=== PATIENT | male | born 1955 | race Caucasian/White ===

== ENCOUNTER 2018-08-31 10:40 | Day surgery (SDC) | payer MEDICARE, MEDICAID ==
[2018-08-31] MEDS: Lactated Ringers 1,000 ML IV SCH (11:14)
[2018-08-31] MEDS: Sodium Chloride 0.9% 10 ML Syringe FLUSH PRN (11:14)
[2018-08-31] MEDS ORDERED: fentaNYL 100 MCG/2 ML SDV ONE (11:38)
[2018-08-31] MEDS ORDERED: Midazolam 1 MG/ML 2 ML SDV ONE (11:38)
[2018-08-31] MEDS ORDERED: Propofol 200 MG/20 ML SDV ONE (11:38)
[2018-08-31] MEDS ORDERED: Lidocaine 2% 5 ML SDV ONE (11:38)
--- NOTE | 2018-08-31 13:34 | PCM.PN ---
- General Info Date of Service: 08/31/18 - Review of Systems Systems Review Comment:: 62-year-old male referred for EGD. He has a sensation of phlegm in his throat. He also has noticed intermittent hoarseness of his voice. He had an ENT evaluation and upper endoscopy was recommended. He is medically stable to proceed with upper endoscopy. I reviewed his recent history and physical and there is no significant change noted. I have discussed discussed the proposed procedure with the patient. He agrees to proceed accepting risks. - Patient Data Vitals - Most Recent: Last Vital Signs Temp 97 F 08/31/18 11:05 Pulse 76 08/31/18 11:05 Resp 16 08/31/18 11:05 BP 164/97 H 08/31/18 11:05 Pulse Ox 96 08/31/18 11:05 Weight - Most Recent: 104.78 kg Med Orders - Current: Current Medications Lactated Ringer's (Ringers, Lactated) 1,000 mls @ 50 mls/hr IV ASDIRECTED MONICO Last Admin: 08/31/18 11:14 Dose: 50 mls/hr Sodium Chloride (Saline Flush) 10 ml FLUSH Q8HR PRN PRN Reason: keep vein open Last Admin: 08/31/18 11:14 Dose: 10 ml Discontinued Medications Fentanyl (Sublimaze) Confirm Administered Dose 100 mcg .ROUTE .STK-MED ONE Stop: 08/31/18 11:39 Lidocaine (Xylocaine-Mpf 2%) Confirm Administered Dose 5 ml .ROUTE .STK-MED ONE Stop: 08/31/18 11:39 Midazolam HCl (Versed 1 Mg/Ml) Confirm Administered Dose 2 mg .ROUTE .STK-MED ONE Stop: 08/31/18 11:39 Propofol (Diprivan 20 Ml) Confirm Administered Dose 200 mg .ROUTE .STK-MED ONE Stop: 08/31/18 11:39 - Problem List Review Problem List Initiated/Reviewed/Updated: Yes - My Orders Last 24 Hours: My Active Orders 08/31/18 10:45 Vital Signs [RC] PER UNIT ROUTINE Lactated Ringers [Ringers, Lactated] 1,000 ml IV ASDIRECTED Sodium Chloride 0.9% [Saline Flush] 10 ml FLUSH Q8HR PRN Peripheral IV Insertion Adult [OM.PC] Routine 08/31/18 11:00 Patient to Empty Bladder [RC] ASDIRECTED 08/31/18 11:45 Verify Patient Consent Obtain [RC] ASDIRECTED 08/31/18 Breakfast Nothing Per Oral Diet [DIET] - Assessment Assessment:: Dysphasia - Plan Plan:: EGD
[2018-08-31] MEDS ORDERED: Propofol 200 MG/20 ML SDV IV ONE (13:35)
[2018-08-31] MEDS ORDERED: Midazolam 1 MG/ML 2 ML SDV IV ONE (13:35)
[2018-08-31] MEDS ORDERED: fentaNYL 100 MCG/2 ML SDV IV ONE (13:35)
--- NOTE | 2018-08-31 14:12 | PCM.OPNOTE ---
- General Post-Op/Procedure Note Date of Surgery/Procedure: 08/31/18 Operative Procedure(s): EGD with Biopsy Findings: Distal Esophageal changes suggestive of 4cm segment of Johnson's Esophagus Exam otherwise normal Pre Op Diagnosis: Dysphagia Post-Op Diagnosis: Johnson's Esophagus Anesthesia Technique: MAC Primary Surgeon: Andres Miner Pathology: Biopsies of Distal Esophagus Output, Urine Amount: 0 EBL in mLs: 5 Complications: None Condition: Good
[2018-08-31 17:22] VITALS: BP 152/78
--- NOTE | 2018-08-31 19:21 | OR ---
DATE OF SURGERY: 08/31/2018 SURGEON: Andres Miner MD REFERRING PHYSICIAN: Ariana Rodriguez MD PREOPERATIVE DIAGNOSIS: Abnormal sensation in throat. POSTOPERATIVE DIAGNOSIS: Johnson's esophagus. OPERATION PERFORMED: Esophagogastroduodenoscopy with biopsy. INDICATIONS FOR SURGERY: This 62-year-old male has had a recent problem with feeling of fullness in his throat and increased phlegm in this area. He underwent an ENT evaluation and upper endoscopy was recommended. FINDINGS: The patient's oropharynx and upper esophagus appeared normal. He does have changes consistent with Johnson's esophagus in the distal esophagus. These extend approximately 4 cm up from the GE junction which is located 39 cm from the incisors. The gastric mucosa and duodenal mucosa appeared normal. No ulcerations or signs of obstruction are seen. DESCRIPTION OF PROCEDURE: The patient was taken to the operating room, the patient was given intravenous sedation, he was placed in the left lateral decubitus position. The esophagus was intubated with the Olympus gastroscope. This was carefully advanced into the oropharynx and then slowly down through the esophagus. The scope was then advanced through the stomach and into the duodenum where examination to the 3rd portion was performed. After examining the duodenum, the scope was withdrawn back into the stomach where full examination including retroflexed examination of the fundus was carried out. The GE junction and distal esophagus were carefully examined and with findings consistent with Johnson's esophagus, multiple biopsies were taken of this area at different levels. The remainder of the esophagus was then re-examined as the scope was removed. The patient was then taken from the operating room in satisfactory condition. ESTIMATED BLOOD LOSS: 5 mL. COMPLICATIONS: None. PROGNOSIS: Good. /[id number]/MODL
== END 2018-08-31 15:50 | disposition home or self-care (01) ==
LOC: KA.SDS 10:40
PROVIDERS: ATTEND Surgery
DX: K22.70 Barrett's esophagus without dysplasia (principal); K20.9 Esophagitis, unspecified; J44.0 Chronic obstructive pulmonary disease with (acute) lower respiratory infection; J20.9 Acute bronchitis, unspecified; F17.210 Nicotine dependence, cigarettes, uncomplicated; F17.220 Nicotine dependence, chewing tobacco, uncomplicated; K21.9 Gastro-esophageal reflux disease without esophagitis; Z79.899 Other long term (current) drug therapy; Z88.0 Allergy status to penicillin; Z88.1 Allergy status to other antibiotic agents
CPT/HCPCS: 00731; J2250; J2704; J3010; J7120

== ENCOUNTER 2018-10-25 08:36 | Emergency (ER) | payer MEDICARE, MEDICAID ==
[2018-10-25 08:50] VITALS: BP 155/105
--- NOTE | 2018-10-25 09:22 | EDM.PDOC ---
ED HPI GENERAL MEDICAL PROBLEM - General Chief Complaint: Skin Complaint Stated Complaint: Rash Time Seen by Provider: 10/25/18 09:13 Source of Information: Reports: Patient History Limitations: Reports: No Limitations - History of Present Illness INITIAL COMMENTS - FREE TEXT/NARRATIVE: 63 YO WM presents to ER with painful rash to right side of scalp, right ear and tongue which began 3 days ago. Pt reports symptoms began soon after he started septra for an ingrown toenail infection. Pt denies any difficulty breathing or swallowing, no eye pain or visual changes. Pt denies any fever/chills, no nausea /vomiting or headache. Onset Date: 10/22/18 Duration: Day(s): (3) Location: Reports: Head Quality: Reports: Ache Severity: Moderate Improves with: Reports: None Worsens with: Reports: None Associated Symptoms: Reports: No Other Symptoms Treatments CITY DRIVER: Reports: Other Medication(s) Other Treatments CITY DRIVER: Pain pills Right Head Pain Score (Numeric/FACES): 10 - Related Data Allergies Allergy/AdvReac Type Severity Reaction Status Date / Time doxycycline Allergy Unknown UNKNOWN Verified 10/25/18 08:50 Penicillins Allergy Unknown UNKNOWN Verified 10/25/18 08:50 Home Meds: Home Meds Acetaminophen [Tylenol Arthritis Pain] 1,300 mg PO DAILY PRN 02/06/15 [History] Esomeprazole Magnesium 40 mg PO DAILY PRN 02/06/15 [History] Meloxicam 15 mg PO DAILY PRN 02/06/15 [History] Albuterol [Ventolin HFA] 1 - 2 puff INH Q4H PRN 08/30/18 [History] Cyclobenzaprine [Flexeril] 10 mg PO BEDTIME PRN 08/30/18 [History] InFLIXimab [Remicade] 100 mg IV ASDIRECTED 08/30/18 [History] Loratadine [Claritin] 10 mg PO DAILY PRN 08/30/18 [History] Acyclovir [Zovirax] 800 mg PO 5XDAY #25 tab 10/25/18 [Rx] Sulfamethoxazole/Trimethoprim [Bactrim Ds Tablet] 1 tab PO BID 10/25/18 [History ] predniSONE [Prednisone] 20 mg PO DAILY #15 tablet 10/25/18 [Rx] traMADol [Ultram] 50 mg PO Q6H PRN #15 tab 10/25/18 [Rx] Past Medical History HEENT History: Reports: Allergic Rhinitis, Impaired Vision, Otitis Media, Sinusitis Cardiovascular History: Reports: SOB on Exertion Respiratory History: Reports: Bronchitis, Recurrent, Intubation, Difficult, Pneumonia, Recurrent, SOB Gastrointestinal History: Reports: Chronic Diarrhea, GERD, Hemorrhoids, Hiatal Hernia Genitourinary History: Reports: Renal Calculus Other Genitourinary History: acute pancreatitis Musculoskeletal History: Reports: Back Pain, Chronic, Neck Pain, Chronic Other Musculoskeletal History: ALKYLOSING SPONDYLITIS Neurological History: Reports: Headaches, Chronic Psychiatric History: Reports: Addiction, Depression, Mood Swings, Suicide Attempt Endocrine/Metabolic History: Reports: None Hematologic History: Reports: None Dermatologic History: Reports: None - Infectious Disease History Infectious Disease History: Reports: Chicken Pox - Past Surgical History Head Surgeries/Procedures: Reports: None HEENT Surgical History: Reports: Oral Surgery Cardiovascular Surgical History: Reports: None Respiratory Surgical History: Reports: None GI Surgical History: Reports: Colonoscopy, Hernia, Abdominal, Hernia, Inguinal, Hernia Repair/Other Male Surgical History: Reports: None Neurological Surgical History: Reports: None Musculoskeletal Surgical History: Reports: Arthroscopic Knee Oncologic Surgical History: Reports: None Dermatological Surgical History: Reports: Skin Biopsy Social & Family History - Family History Family Medical History: Noncontributory Oncologic: Reports: Breast, Lung, Skin - Caffeine Use Caffeine Use: Reports: Coffee, Soda Other Caffeine Use: pepsi ED ROS ALLERGIC REACTION - Review of Systems Review Of Systems: See Below Constitutional: Reports: No Symptoms HEENT: Reports: Ear Pain Respiratory: Reports: No Symptoms Cardiovascular: Reports: No Symptoms Endocrine: Reports: No Symptoms GI/Abdominal: Reports: No Symptoms : Reports: No Symptoms Musculoskeletal: Reports: No Symptoms Skin: Reports: Rash Neurological: Reports: No Symptoms Psychiatric: Reports: No Symptoms Hematologic/Lymphatic: Reports: No Symptoms ED EXAM GENERAL NO PERIP PULSE - Physical Exam Exam: See Below Exam Limited By: No Limitations General Appearance: Alert, WD/WN, No Apparent Distress Eye Exam: Bilateral Eye: EOMI, PERRL Ears: Other (vessiclar rash in right ear canal) Throat/Mouth: Other (vessicles on right side of tongue) Head: Atraumatic, Normocephalic Neck: Normal Inspection, Supple, Non-Tender, Full Range of Motion Respiratory/Chest: No Respiratory Distress, Lungs Clear, Normal Breath Sounds, No Accessory Muscle Use, Chest Non-Tender Cardiovascular: Normal Peripheral Pulses, Regular Rate, Rhythm, No Edema, No Gallop, No JVD, No Murmur, No Rub GI/Abdominal: Normal Bowel Sounds, Soft, Non-Tender, No Organomegaly, No Distention, No Abnormal Bruit, No Mass Back Exam: Normal Inspection, Full Range of Motion, NT Extremities: Normal Inspection, Normal Range of Motion, Non-Tender, Normal Capillary Refill, No Pedal Edema Neurological: Alert, Oriented, CN II-XII Intact, Normal Cognition, Normal Gait, Normal Reflexes, No Motor/Sensory Deficits Psychiatric: Normal Affect, Normal Mood Skin Exam: Zoster-Like Rash (to right side of scalp) Course - Vital Signs Last Recorded V/S: Last Vital Signs Temp 36.6 C 10/25/18 08:45 Pulse 90 10/25/18 08:45 Resp 16 10/25/18 08:45 BP 155/105 H 10/25/18 08:45 Pulse Ox 93 L 10/25/18 08:45 Departure - Departure Time of Disposition: 09:22 Disposition: Home, Self-Care 01 Condition: Good Clinical Impression: Shingles Qualifiers: Herpes zoster complications: without complications Qualified Code(s): B02.9 - Zoster without complications - Discharge Information Prescriptions: Acyclovir [Zovirax] 800 mg PO 5XDAY #25 tab predniSONE [Prednisone] 20 mg PO DAILY #15 tablet traMADol [Ultram] 50 mg PO Q6H PRN #15 tab PRN Reason: Pain Instructions: Shingles Referrals: Ariana Byers MD [Primary Care Provider] - Additional Instructions: 1. discharge home 2. acyclovir 800mg PO 5x/day x 7 days 3. prednisone 60mg PO QD 4. ultram 50mg PO Q4-6 PRN pain 5. follow up with PCP for further evaluation and treatment 6. return to ER for worsening symptoms - Assessment/Plan Assessment:: 1. shingles without eye involvement Plan: 1. discharge home 2. acyclovir 800mg PO 5x/day x 7 days 3. prednisone 60mg PO QD 4. ultram 50mg PO Q4-6 PRN pain 5. follow up with PCP for further evaluation and treatment 6. return to ER for worsening symptoms
== END 2018-10-25 09:40 | disposition home or self-care (01) ==
LOC: KA.ED 08:36
DX: B02.9 Zoster without complications (principal); F32.9 Major depressive disorder, single episode, unspecified; Z88.1 Allergy status to other antibiotic agents; Z88.0 Allergy status to penicillin; Z79.899 Other long term (current) drug therapy
CPT/HCPCS: 99282; 99283

== ENCOUNTER 2020-03-28 12:50 | Emergency (ER) | payer MEDICARE, MEDICAID ==
[2020-03-28] MEDS ORDERED: Sodium Chloride 0.9% 10 ML Syringe FLUSH PRN (12:53)
[2020-03-28 13:04] VITALS: BP 137/81; PULSE 79
--- NOTE | 2020-03-28 13:11 | EDM.PDOC ---
ED HPI GENERAL MEDICAL PROBLEM - General Chief Complaint: Chest Pain Stated Complaint: chest pain Time Seen by Provider: 03/28/20 12:55 Source of Information: Reports: Patient History Limitations: Reports: No Limitations - History of Present Illness INITIAL COMMENTS - FREE TEXT/NARRATIVE: 64 YO WM PRESENTS TO ER COMPLAINING OF 2 DAY HISTORY OF SUBSTERNAL CHEST PAIN. PT HAS BEEN HAVING CHEST PAIN ON/OFF AND RECENTLY HAD A HOLTER MONITOR WHICH SHOWED 2ND DEGREE HEART BLOCK MOBITZ TYPE 2 WITH EPISODES OF TACHYCARDIA. PT REPORTS HE IS IN THE PROCESS OF SCHEDULING WITH CARDIOLOGY FOR FURTHER EVALUATION WHEN HIS CHEST PAIN BECAME WORSE. PT REPORTS CHEST PAIN WITH RADIATION TO LEFT SIDE OF NECK WITH ASSOCIATED DIZZINESS AND MILD SHORTNESS OF BREATH. PT DENIES COUGH/CONGESTION, NO FEVER/CHILLS, NO N/V/D. Onset: Today Duration: Constant Location: Reports: Chest Quality: Reports: Ache Severity: Mild Improves with: Reports: None Worsens with: Reports: None Associated Symptoms: Reports: Chest Pain, Shortness of Breath. Denies: Diaphoresis, Nausea/Vomiting, Syncope Left Chest Pain Score (Numeric/FACES): 7 - Related Data Allergies Allergy/AdvReac Type Severity Reaction Status Date / Time doxycycline Allergy Unknown UNKNOWN Verified 03/28/20 12:57 Penicillins Allergy Unknown UNKNOWN Verified 03/28/20 12:57 Home Meds: Home Meds Acetaminophen [Tylenol Arthritis Pain] 1,300 mg PO DAILY PRN 02/06/15 [History] Albuterol [Ventolin HFA] 1 - 2 puff INH Q4H PRN 08/30/18 [History] Cyclobenzaprine [Flexeril] 10 mg PO BEDTIME PRN 08/30/18 [History] InFLIXimab [Remicade] 100 mg IV ASDIRECTED 08/30/18 [History] Acetaminophen/HYDROcodone [[place] 325-5 MG] 1 tab PO Q4H PRN 03/03/19 [History] Dexlansoprazole [Dexilant] 60 mg PO DAILY PRN 03/28/20 [History] amLODIPine Besylate [Amlodipine Besylate] 5 mg PO DAILY 03/28/20 [History] Past Medical History HEENT History: Reports: Allergic Rhinitis, Impaired Vision, Otitis Media, Sinusitis Cardiovascular History: Reports: SOB on Exertion Respiratory History: Reports: Bronchitis, Recurrent, Intubation, Difficult, Pneumonia, Recurrent, SOB Gastrointestinal History: Reports: Chronic Diarrhea, GERD, Hemorrhoids, Hiatal Hernia Genitourinary History: Reports: Renal Calculus Other Genitourinary History: acute pancreatitis Musculoskeletal History: Reports: Back Pain, Chronic, Neck Pain, Chronic Other Musculoskeletal History: ALKYLOSING SPONDYLITIS Neurological History: Reports: Headaches, Chronic Psychiatric History: Reports: Addiction, Depression, Mood Swings, Suicide Attempt Endocrine/Metabolic History: Reports: None Hematologic History: Reports: None Immunologic History: Reports: Immunosuppression Dermatologic History: Reports: None - Infectious Disease History Infectious Disease History: Reports: Chicken Pox - Past Surgical History Head Surgeries/Procedures: Reports: None HEENT Surgical History: Reports: Oral Surgery Cardiovascular Surgical History: Reports: None Respiratory Surgical History: Reports: None GI Surgical History: Reports: Colonoscopy, Hernia, Abdominal, Hernia, Inguinal, Hernia Repair/Other Male Surgical History: Reports: None Neurological Surgical History: Reports: None Musculoskeletal Surgical History: Reports: Arthroscopic Knee Oncologic Surgical History: Reports: None Dermatological Surgical History: Reports: Skin Biopsy Social & Family History - Family History Family Medical History: Noncontributory Oncologic: Reports: Breast, Lung, Skin - Caffeine Use Caffeine Use: Reports: Coffee, Soda Other Caffeine Use: pepsi ED ROS GENERAL - Review of Systems Review Of Systems: See Below Constitutional: Reports: No Symptoms HEENT: Reports: No Symptoms Respiratory: Reports: Shortness of Breath Cardiovascular: Reports: Chest Pain, Lightheadedness Endocrine: Reports: No Symptoms GI/Abdominal: Reports: No Symptoms : Reports: No Symptoms Musculoskeletal: Reports: Neck Pain Skin: Reports: No Symptoms Neurological: Reports: No Symptoms Psychiatric: Reports: No Symptoms Hematologic/Lymphatic: Reports: No Symptoms Immunologic: Reports: No Symptoms ED EXAM, GENERAL - Physical Exam Exam: See Below Exam Limited By: No Limitations General Appearance: Alert, WD/WN, No Apparent Distress Eye Exam: Bilateral Eye: EOMI, PERRL Head: Atraumatic, Normocephalic Neck: Normal Inspection, Supple, Non-Tender, Full Range of Motion Respiratory/Chest: No Respiratory Distress, Lungs Clear, Normal Breath Sounds, No Accessory Muscle Use, Chest Non-Tender Cardiovascular: Normal Peripheral Pulses, Regular Rate, Rhythm, No Edema, No Gallop, No JVD, No Murmur, No Rub GI/Abdominal: Normal Bowel Sounds, Soft, Non-Tender, No Organomegaly, No Distention, No Abnormal Bruit, No Mass Back Exam: Normal Inspection, Full Range of Motion, NT Extremities: Normal Inspection, Normal Range of Motion, Non-Tender, Normal Capillary Refill, No Pedal Edema Neurological: Alert, Oriented, CN II-XII Intact, Normal Cognition, Normal Gait, Normal Reflexes, No Motor/Sensory Deficits Psychiatric: Normal Affect, Normal Mood Skin Exam: Warm, Dry, Intact, Normal Color, No Rash Lymphatic: No Adenopathy EKG INTERPRETATION EKG Date: 03/28/20 Time: 13:03 Rhythm: NSR Rate (Beats/Min): 75 [place]: Normal P-Wave: Present QRS: Normal ST-T: Normal QT: Normal Course - Vital Signs Last Recorded V/S: Last Vital Signs Temp 36.8 C 03/28/20 12:58 Pulse 79 03/28/20 12:58 Resp 18 03/28/20 12:58 BP 137/81 03/28/20 12:58 Pulse Ox 96 03/28/20 12:58 - Orders/Labs/Meds Orders: Active Orders 24 hr Category Date Time Status EKG Documentation Completion [RC] ASDIRECTED Care 03/28/20 12:54 Active Peripheral IV Care [RC] . DIRECTED Care 03/28/20 12:54 Active Sodium Chloride 0.9% [Saline Flush] Med 03/28/20 12:53 Active 10 ml FLUSH Q8HR PRN Peripheral IV Insertion Adult [OM.PC] Routine Oth 03/28/20 12:53 Ordered EKG 12 Lead [EK] Stat Ther 03/28/20 12:54 Ordered Medication Orders Sodium Chloride (Saline Flush) 10 ml FLUSH Q8HR PRN PRN Reason: keep vein open Last Admin: 03/28/20 12:55 Dose: 10 ml Documented by: JAYE Labs: Laboratory Tests 03/28/20 03/28/20 03/28/20 Range/Units 12:55 12:55 12:55 WBC 6.13 (5.00-10.00) 10^3/uL RBC 4.72 (4.50-6.00) 10^6/uL Hgb 14.2 (13.0-17.0) g/dL Hct 40.8 (40.0-52.0) % MCV 86.4 (82.0-92.0) fL MCH 30.1 (27.0-31.0) pg MCHC 34.8 (32.0-36.0) g/dL RDW 13.5 (11.5-14.5) % Plt Count 224 (150-400) 10^3/uL MPV 9.5 (7.4-10.4) fL Immature Gran % (Auto) 0.0 (0.0-5.0) % Neut % (Auto) 37.5 L (50.0-70.0) % Lymph % (Auto) 48.0 H (20.0-40.0) % [place] % (Auto) 10.4 H (2.0-8.0) % Eos % (Auto) 3.3 H (1.0-3.0) % Baso % (Auto) 0.8 (0.0-1.0) % Neut # (Auto) 2.30 L (2.50-7.00) 10^3/uL Lymph # (Auto) 2.94 (1.00-4.00) 10^3/uL [place] # (Auto) 0.64 (0.10-0.80) 10^3/uL Eos # (Auto) 0.20 (0.10-0.30) 10^3/uL Baso # (Auto) 0.05 (0.00-0.10) 10^3/uL Immature Gran # (Auto) 0.00 (0.00-0.50) 10^3/uL PT 9.9 (9.2-11.2) SEC INR 1.0 (0.9-1.1) APTT 29.0 (22.8-31.4) SEC Sodium 142 (136-145) mmol/L Potassium 3.7 (3.3-5.3) mmol/L Chloride 104 (98-115) mmol/L Carbon Dioxide 26.9 (21.0-32.0) mmol/L Anion Gap 14.8 (5-15) mmol/L BUN 21 (6-25) mg/dL Creatinine 0.96 (0.51-1.17) mg/dL Est Cr Clr Drug Dosing 86.70 mL/min Estimated GFR (MDRD) > 60 mL/min Glucose 103 H (75 - 99) mg/dL Calcium 8.5 L (8.7-10.3) mg/dL Total Bilirubin 0.5 (0.2-1.0) mg/dL AST 33 (15-37) U/L ALT 44 (12-78) U/L Alkaline Phosphatase 59 (46-116) IU/L Creatine Kinase 150 (26-276) U/L CK-MB (CK-2) 1.10 (0.00-4.30) ng/mL Troponin I 0.08 H* (0.00-0.070) ng/mL Total Protein 8.1 (6.4-8.2) g/dL Albumin 3.75 (3.00-4.80) g/dL Lipase 132 (73-393) U/L Meds: Medications Generic Name Dose Route Start Last Admin Trade Name Freq PRN Reason Stop Dose Admin Sodium Chloride 10 ml 03/28/20 12:53 03/28/20 12:55 Saline Flush FLUSH 10 ml Q8HR PRN Administration keep vein open Discontinued Medications Generic Name Dose Route Start Last Admin Trade Name Freq PRN Reason Stop Dose Admin Aspirin 324 mg 03/28/20 13:22 03/28/20 13:27 Aspirin PO 03/28/20 13:23 324 mg ONETIME ONE Administration Nitroglycerin 1 gm 03/28/20 13:22 03/28/20 13:26 Nitro-Bid 2% TOP 03/28/20 13:23 1 gm ONETIME ONE Administration Nitroglycerin Confirm 03/28/20 13:26 Nitro-Bid 2% Administered 03/28/20 13:27 Dose 1 gm .ROUTE .STK-MED ONE - Radiology Interpretation Free Text/Narrative:: CXR- NAD Departure - Departure Time of Disposition: 14:16 Disposition: DC/Tfer to Acute Hospital 02 Reason for Transfer *Q: Other (ABNORMAL HOLTER/ELEVATED TROP I) Condition: Fair Clinical Impression: Chest pain Qualifiers: Ischemic chest pain type: unspecified angina pectoris type Referrals: Ariana Byers MD [Primary Care Provider] - Forms: ED Department Discharge, Interfacility Transfer [facility] Sepsis Event Note (ED) - Focused Exam Vital Signs: Vital Signs Temp Pulse Resp BP Pulse Ox 03/28/20 12:58 36.8 C 79 18 137/81 96 - My Orders Last 24 Hours: My Active Orders 03/28/20 12:53 Sodium Chloride 0.9% [Saline Flush] 10 ml FLUSH Q8HR PRN Peripheral IV Insertion Adult [OM.PC] Routine 03/28/20 12:54 EKG Documentation Completion [RC] ASDIRECTED Peripheral IV Care [RC] . DIRECTED EKG 12 Lead [EK] Stat - Assessment/Plan Last 24 Hours: My Active Orders 03/28/20 12:53 Sodium Chloride 0.9% [Saline Flush] 10 ml FLUSH Q8HR PRN Peripheral IV Insertion Adult [OM.PC] Routine 03/28/20 12:54 EKG Documentation Completion [RC] ASDIRECTED Peripheral IV Care [RC] . DIRECTED EKG 12 Lead [EK] Stat Assessment:: 1. CHEST PAIN- IMPROVED AFTER NITRO Plan: 1. TRANSFER TO [facility] FOR FURTHER EVAL- DR HARVEY 2. ASA/NITRO 3. O2 PRN 4. SUPPORTIVE CARE
[2020-03-28] MEDS ORDERED: Nitroglycerin 2% Oint 1 GM UD Packet TOP ONE (13:22)
[2020-03-28] MEDS ORDERED: Aspirin 81 MG Tab.Chew PO ONE (13:22)
[2020-03-28] MEDS ORDERED: Nitroglycerin 2% Oint 1 GM UD Packet ONE (13:26)
[2020-03-28 13:33] LABS: ANION GAP 14.8 mmol/L (5-15); CHLORIDE,CL 104 mmol/L (98-115); SODIUM,NA 142 mmol/L (136-145)
--- NOTE | 2020-03-28 13:45 | CR ---
[id number] RAD/RAD Chest PA And Lateral EXAM: RAD Chest PA And Lateral CLINICAL DATA: CHEST PAIN COMPARISON: CORRELATION IS MADE WITH AUGUST 27, 2018 FINDINGS: The lungs are clear but hyperaerated. The cardiomediastinal contour is normal. There are multiple old left rib fractures The regional bones and soft tissues are unremarkable. IMPRESSION: AIRWAY DISEASE Trev Morrison MD 03/28/20 [id number] Thank you for allowing us to participate in the care of your patient.
== END 2020-03-28 16:05 ==
LOC: KA.ED 12:50
DX: I20.9 Angina pectoris, unspecified (principal); Z88.1 Allergy status to other antibiotic agents; Z88.0 Allergy status to penicillin; Z79.899 Other long term (current) drug therapy
CPT/HCPCS: 71046; 80053; 82550; 82553; 83690; 84484; 85025; 85610; 85730; 93005; 99284; 99285-25; A9270-GY

== ENCOUNTER 2020-09-30 19:26 | Emergency (ER) | payer MEDICARE, MEDICAID ==
[2020-09-30] MEDS ORDERED: Sodium Chloride 0.9% 10 ML Syringe FLUSH PRN (19:34)
[2020-09-30] MEDS ORDERED: HYDROmorphone 1 MG/ML Syringe IVPUSH ONE ×2 (19:34→20:10)
--- NOTE | 2020-09-30 19:35 | EDM.PDOC ---
ED HPI GENERAL MEDICAL PROBLEM - General Chief Complaint: Trauma Stated Complaint: FELL Time Seen by Provider: 09/30/20 19:28 Source of Information: Reports: Patient History Limitations: Reports: Altered Mental Status - History of Present Illness INITIAL COMMENTS - FREE TEXT/NARRATIVE: Kailash, 65-year-old male, fell tonight from the box of his pickup after coyote hunting today. Went over the tailgate landing on right shoulder striking his head and shoulder. Denies loss of consciousness, has mild headache with neck pain and shoulder pain upon his arrival. He has a significant history of arthritic changes, with chronic pain. Significant ankylosing spondylitis of which Remicade infusion every 6 weeks. He also gets injections into the musculature of the neck with pain management. NEGRA William. Onset: Today, Sudden Duration: Minutes: Location: Reports: Head, Neck, Upper Extremity, Right, Generalized Quality: Reports: Ache, Pressure, Sharp, Stabbing Severity: Severe Improves with: Reports: None Worsens with: Reports: Movement Context: Reports: Trauma Associated Symptoms: Reports: No Other Symptoms Left Shoulder Pain Score (Numeric/FACES): 10 - Related Data Allergies Allergy/AdvReac Type Severity Reaction Status Date / Time doxycycline Allergy Unknown UNKNOWN Verified 09/30/20 20:06 Penicillins Allergy Unknown UNKNOWN Verified 09/30/20 20:06 Home Meds: Home Meds Cyclobenzaprine [Flexeril] 10 mg PO BEDTIME PRN 08/30/18 [History] InFLIXimab [Remicade] 100 mg IV ASDIRECTED 08/30/18 [History] Magnesium Oxide 250 mg PO DAILY 04/18/20 [History] Metoprolol Succinate [Toprol XL] 25 mg PO DAILY 04/18/20 [History] Potassium Chloride [K-Tab ER] 10 meq PO DAILY 04/18/20 [History] atorvaSTATin [Lipitor] 40 mg PO BEDTIME 04/18/20 [History] Acetaminophen [Tylenol Arthritis] 650 mg PO ASDIRECTED PRN 09/30/20 [History] Acetaminophen/HYDROcodone [Chatom 325-5 MG] 1 tab PO ASDIRECTED PRN 09/30/20 [History] Albuterol [Proventil Neb Soln] 1 dose INH ASDIRECTED PRN 09/30/20 [History] Dexlansoprazole [Dexilant] 60 mg PO DAILY 09/30/20 [History] amLODIPine [Norvasc] 5 mg PO DAILY 09/30/20 [History] oxyCODONE 5 - 10 mg PO ASDIRECTED PRN 09/30/20 [History] Past Medical History HEENT History: Reports: Allergic Rhinitis, Impaired Vision, Otitis Media, Sinusitis Cardiovascular History: Reports: SOB on Exertion Other Cardiovascular History: recent heart monitor showed v tach, mobitz II, and SVT Respiratory History: Reports: Bronchitis, Recurrent, Intubation, Difficult, Pneumonia, Recurrent, SOB Gastrointestinal History: Reports: Chronic Diarrhea, GERD, Hemorrhoids, Hiatal Hernia Genitourinary History: Reports: Renal Calculus Other Genitourinary History: acute pancreatitis Musculoskeletal History: Reports: Back Pain, Chronic, Neck Pain, Chronic Other Musculoskeletal History: ALKYLOSING SPONDYLITIS Neurological History: Reports: Headaches, Chronic Psychiatric History: Reports: Addiction, Depression, Mood Swings, Suicide Attempt Endocrine/Metabolic History: Reports: None Hematologic History: Reports: None Immunologic History: Reports: Immunosuppression Dermatologic History: Reports: None - Infectious Disease History Infectious Disease History: Reports: Chicken Pox - Past Surgical History Head Surgeries/Procedures: Reports: None HEENT Surgical History: Reports: Oral Surgery Cardiovascular Surgical History: Reports: None Respiratory Surgical History: Reports: None GI Surgical History: Reports: Colonoscopy, Hernia, Abdominal, Hernia, Inguinal, Hernia Repair/Other Male Surgical History: Reports: None Neurological Surgical History: Reports: None Musculoskeletal Surgical History: Reports: Arthroscopic Knee Oncologic Surgical History: Reports: None Dermatological Surgical History: Reports: Skin Biopsy Social & Family History - Family History Family Medical History: No Pertinent Family History Oncologic: Reports: Breast, Lung, Skin - Tobacco Use Tobacco Use Within Last Twelve Months: No - Caffeine Use Caffeine Use: Reports: Coffee, Soda Other Caffeine Use: pepsi ED ROS GENERAL - Review of Systems Review Of Systems: Comprehensive ROS is negative, except as noted in HPI. ED EXAM, GENERAL - Physical Exam Exam: See Below Free Text/Narrative:: Alert, oriented, in acute distress. He is gradually assisted from his pickup seat of the neighbor that drove him to town into the wheelchair. He states his neck shoulder and head hurt but with his ankylosing spondylitis he is neck is in a kyphotic buttock positioning with only 2 fingers under his chin limiting any spinal immobilization technique other than manual guidance and towels. HEENT is negative discharge or deformity. PERRLA no icterus no injection Full alvarado limits visualization of the facial features but he does not have any specific tenderness. Neck is tender throughout the spinal process but he states some of that he expects as it is always discomforting. Thorax is mildly diminished limiting deep inspiration secondary of his pain. No pain nor deformity to thoracic nor lumbar spine on examination. There is tenderness at the anterior shoulder girdle which resolves when given the time it takes to get stabilized to go for CT. Cardiac is distant I do not appreciate murmur. Rotund abdomen with no tenderness rectal deferred. No edema to lower extremities. Brought to the CT suite which need significant elevation under the bent knees with a wedge plus pillows for comfort. He is guided in assisted onto the table and head is placed above the actual head socket bernal, with towels to support the curvature of his spine. He is then assessed and brought back up with assistance maintaining inline p ositioning for his natural status. He is placed on the cart and towel rolls are secured in place with Coban and tape awaiting formal reading report. He is able to move the upper extremities throughout this. With the pain in his right shoulder resolving after the administration of a milligram of Dilaudid. No deficit was noted to the left upper extremity at any time. Course - Vital Signs Last Recorded V/S: Last Vital Signs Temp 97.9 F 09/30/20 21:12 Pulse 81 09/30/20 21:12 Resp 20 09/30/20 21:12 BP 163/87 H 09/30/20 21:12 Pulse Ox 93 L 09/30/20 21:12 - Orders/Labs/Meds Orders: Active Orders 24 hr Category Date Time Status Peripheral IV Care [RC] . DIRECTED Care 09/30/20 19:34 Active Cervical Spine wo Cont [CT] Stat Exams 09/30/20 19:29 Ordered Head wo Cont [CT] Stat Exams 09/30/20 19:29 Ordered Shoulder wo Cont Rt [CT] Stat Exams 09/30/20 19:30 Ordered Sodium Chloride 0.9% [Saline Flush] Med 09/30/20 19:34 Active 10 ml FLUSH Q8HR PRN Peripheral IV Insertion Adult [OM.PC] Routine Oth 09/30/20 19:34 Ordered Medication Orders Sodium Chloride (Saline Flush) 10 ml FLUSH Q8HR PRN PRN Reason: keep vein open Labs: Laboratory Tests 09/30/20 09/30/20 Range/Units 21:05 21:05 WBC 9.75 (5.00-10.00) 10^3/uL RBC 4.50 (4.50-6.00) 10^6/uL Hgb 13.4 (13.0-17.0) g/dL Hct 38.5 L (40.0-52.0) % MCV 85.6 (82.0-92.0) fL MCH 29.8 (27.0-31.0) pg MCHC 34.8 (32.0-36.0) g/dL RDW 13.0 (11.5-14.5) % Plt Count 181 (150-400) 10^3/uL MPV 9.1 (7.4-10.4) fL Immature Gran % (Auto) 0.3 (0.0-5.0) % Neut % (Auto) 75.9 H (50.0-70.0) % Lymph % (Auto) 13.5 L (20.0-40.0) % Morgan % (Auto) 9.3 H (2.0-8.0) % Eos % (Auto) 0.8 L (1.0-3.0) % Baso % (Auto) 0.2 (0.0-1.0) % Neut # (Auto) 7.39 H (2.50-7.00) 10^3/uL Lymph # (Auto) 1.32 (1.00-4.00) 10^3/uL Morgan # (Auto) 0.91 H (0.10-0.80) 10^3/uL Eos # (Auto) 0.08 L (0.10-0.30) 10^3/uL Baso # (Auto) 0.02 (0.00-0.10) 10^3/uL Immature Gran # (Auto) 0.03 (0.00-0.50) 10^3/uL Sodium 138 (136-145) mmol/L Potassium 3.5 (3.5-5.1) mmol/L Chloride 102 (98-107) mmol/L Carbon Dioxide 27.4 (21.0-32.0) mmol/L Anion Gap 12.1 (5-15) mmol/L BUN 13 (7-18) mg/dL Creatinine 1.09 (0.51-1.17) mg/dL Est Cr Clr Drug Dosing 75.34 mL/min Estimated GFR (MDRD) > 60 mL/min Glucose 118 (70-140) mg/dL Calcium 8.6 L (8.7-10.3) mg/dL Total Bilirubin 0.5 (0.2-1.0) mg/dL AST 34 (15-37) U/L ALT 34 (14-63) U/L Alkaline Phosphatase 62 (46-116) U/L Total Protein 7.9 (6.4-8.2) g/dL Albumin 3.72 (3.40-5.00) g/dL Meds: Medications Generic Name Dose Route Start Last Admin Trade Name Freq PRN Reason Stop Dose Admin Sodium Chloride 10 ml 09/30/20 19:34 Saline Flush FLUSH Q8HR PRN keep vein open Discontinued Medications Generic Name Dose Route Start Last Admin Trade Name Freq PRN Reason Stop Dose Admin Hydromorphone HCl 1 mg 09/30/20 19:34 09/30/20 19:40 Dilaudid IVPUSH 09/30/20 19:35 1 mg ONETIME ONE Administration Hydromorphone HCl 1 mg 09/30/20 20:10 09/30/20 20:19 Dilaudid IVPUSH 09/30/20 20:11 1 mg ONETIME ONE Administration Ondansetron HCl 8 mg 09/30/20 21:20 09/30/20 21:28 Zofran IVPUSH 09/30/20 21:21 8 mg ONETIME ONE Administration Departure - Departure Time of Disposition: 21:33 Disposition: DC/Tfer to Acute Hospital 02 Condition: Fair Clinical Impression: C6 cervical fracture, C7 cervical fracture, T1 vertebral fracture, Cervical stenosis of spinal canal, Epidural hematoma - Discharge Information *PRESCRIPTION DRUG MONITORING PROGRAM REVIEWED*: Not Applicable *COPY OF PRESCRIPTION DRUG MONITORING REPORT IN PATIENT KELLY: Not Applicable Referrals: Ariana Byers MD [Primary Care Provider] - Forms: ED Department Discharge Additional Instructions: Dr Barbosa accepting . Sepsis Event Note (ED) - Focused Exam Vital Signs: Vital Signs Temp Pulse Resp BP Pulse Ox 09/30/20 21:12 97.9 F 81 20 163/87 H 93 L 09/30/20 20:21 97.9 F 77 20 168/94 H 97 09/30/20 19:43 98.0 F 86 22 H 165/89 H 98 - Problem List & Annotations (1) C6 cervical fracture SNOMED Code(s): 002575460 Code(s): S12.500A - UNSP DISP FX OF SIXTH CERVICAL VERTEBRA, INIT FOR CLOS FX Status: Acute Priority: High Current Visit: Yes Qualifiers: Encounter type: initial encounter (2) C7 cervical fracture SNOMED Code(s): 991544487 Code(s): S12.600A - UNSP DISP FX OF SEVENTH CERVICAL VERTEBRA, INIT FOR CLOS FX Status: Acute Priority: High Current Visit: Yes Qualifiers: Encounter type: initial encounter Fracture type: closed Fracture alignment: nondisplaced (3) T1 vertebral fracture SNOMED Code(s): 735914008, 635264271 Code(s): S22.019A - UNSP FRACTURE OF FIRST THORACIC VERTEBRA, INIT FOR CLOS FX Status: Acute Priority: High Current Visit: Yes Qualifiers: Encounter type: initial encounter Fracture type: closed (4) Cervical stenosis of spinal canal Status: Chronic Priority: High Current Visit: Yes (5) Epidural hematoma SNOMED Code(s): 624187859, 084164804 Code(s): S06.4X9A - EPIDURAL HEMORRHAGE W LOC OF UNSP DURATION, INIT Status: Acute Priority: High Current Visit: Yes - Problem List Review Problem List Initiated/Reviewed/Updated: Yes - My Orders Last 24 Hours: My Active Orders 09/30/20 19:29 Cervical Spine wo Cont [CT] Stat Head wo Cont [CT] Stat 09/30/20 19:30 Shoulder wo Cont Rt [CT] Stat 09/30/20 19:34 Peripheral IV Care [RC] . DIRECTED Sodium Chloride 0.9% [Saline Flush] 10 ml FLUSH Q8HR PRN Peripheral IV Insertion Adult [OM.PC] Routine - Assessment/Plan Last 24 Hours: My Active Orders 09/30/20 19:29 Cervical Spine wo Cont [CT] Stat Head wo Cont [CT] Stat 09/30/20 19:30 Shoulder wo Cont Rt [CT] Stat 09/30/20 19:34 Peripheral IV Care [RC] . DIRECTED Sodium Chloride 0.9% [Saline Flush] 10 ml FLUSH Q8HR PRN Peripheral IV Insertion Adult [OM.PC] Routine Plan: Dr Barbosa accepting .
[2020-09-30 21:13] VITALS: BP 163/87; PULSE 81
[2020-09-30] MEDS ORDERED: Ondansetron 4 MG/2 ML SDV IVPUSH ONE (21:20)
[2020-09-30 21:29] LABS: ANION GAP 12.1 mmol/L (5-15); CHLORIDE,CL 102 mmol/L (98-107); SODIUM,NA 138 mmol/L (136-145)
--- NOTE | 2020-10-01 08:10 | CT ---
[id number] CT/CT Head WO IV EXAM: CT Head WO IV CLINICAL DATA: FALL, TRAUMA COMPARISON STUDY: 2008 FINDINGS: No intracranial hemorrhage, extra-axial fluid collection, mass, or acute ischemia. No hydrocephalus. Mild to moderate frontal lobe predominant parenchymal atrophy. Findings have increased since the prior examination. Calvarium intact. Paranasal sinuses and mastoid air cells are clear. IMPRESSION: No acute intracranial findings. Boy Awad MD 10/01/20 0809 Thank you for allowing us to participate in the care of your patient.
--- NOTE | 2020-10-01 08:56 | CT ---
[id number] CT/CT Cervical Spine WO IV EXAM: CT Cervical Spine WO IV INDICATION: FALL, TRAUMA COMPARISON: CT and MRI examinations from 2010. DISCUSSION: There is an acute obliquely orientated fracture extending through the C6 vertebral body most prominent at right of midline on series 6 image 50). No significant displacement at the fracture site. Fracture line extends into the right C6-7 foramen. There is also a acute fracture that extends through the C7 posterior elements, centered within the lamina, superior articulating facet, and spinous process. No significant displacement at the fracture site. Possible nondisplaced fracture of the right T1 pedicle as well. Findings are superimposed on changes of ankylosing spondylitis throughout the cervical spine. Stranding in the right supraclavicular fossa. Finding is nonspecific. Emphysematous change in the bilateral lung apices. IMPRESSION: Acute fractures of C6, C7, and possibly T1. Involvement of the posterior elements on the right is consistent with an unstable fracture. No definite involvement of the right transverse process as stated on the preliminary report. Findings are superimposed on changes of ankylosing spondylitis with Consider MRI examination of the cervical spine to better evaluate extent of fractures throughout the cervical spine. Hyperdense stranding in the right supraclavicular fossa. No adjacent clavicle fracture. Consider chest CT for further evaluation. Boy Awad MD 10/01/20 0855 Thank you for allowing us to participate in the care of your patient.
== END 2020-09-30 22:10 ==
LOC: KA.ED 19:26
DX: S12.500A Unspecified displaced fracture of sixth cervical vertebra, initial encounter for closed fracture (principal); S12.600A Unspecified displaced fracture of seventh cervical vertebra, initial encounter for closed fracture; S22.019A Unspecified fracture of first thoracic vertebra, initial encounter for closed fracture; M48.02 Spinal stenosis, cervical region; G95.19 Other vascular myelopathies; K21.9 Gastro-esophageal reflux disease without esophagitis; Z88.0 Allergy status to penicillin; Z88.1 Allergy status to other antibiotic agents; Z79.899 Other long term (current) drug therapy; W19.XXXA Unspecified fall, initial encounter
CPT/HCPCS: 36415; 70450; 72125; 80053; 85025; 96374; 96375; 96376; 99284; 99285-25; J1170; J2405

== ENCOUNTER 2023-05-05 07:54 | Day surgery (SDC) | payer MEDICARE, MEDICAID ==
[2023-05-05] MEDS ORDERED: Propofol 200 MG/20 ML SDV IV ONE (07:55)
[2023-05-05] MEDS ORDERED: Lactated Ringers 1,000 ML IV SCH (08:00)
[2023-05-05] MEDS ORDERED: Sodium Chloride 0.9% 10 ML Syringe FLUSH PRN (08:00)
[2023-05-05] MEDS ORDERED: Glycopyrrolate 0.2 MG/ML SDV ONE (09:04)
[2023-05-05] MEDS ORDERED: Propofol 200 MG/20 ML SDV ONE ×2 (09:04→09:46)
[2023-05-05] MEDS ORDERED: Midazolam 1 MG/ML 2 ML SDV ONE (09:04)
[2023-05-05] MEDS ORDERED: Lidocaine 2% 100 MG/5 ML Syringe ONE (09:05)
[2023-05-05 13:38] VITALS: BP 130/84; PULSE 95
== END 2023-05-05 11:35 | disposition home or self-care (01) ==
LOC: KA.SDS 07:54
PROVIDERS: ATTEND Surgery
DX: D12.8 Benign neoplasm of rectum (principal); D12.5 Benign neoplasm of sigmoid colon; D12.3 Benign neoplasm of transverse colon; K22.70 Barrett's esophagus without dysplasia; K20.90 Esophagitis, unspecified without bleeding; K44.9 Diaphragmatic hernia without obstruction or gangrene; K62.89 Other specified diseases of anus and rectum; K57.30 Diverticulosis of large intestine without perforation or abscess without bleeding; K64.4 Residual hemorrhoidal skin tags; H10.10 Acute atopic conjunctivitis, unspecified eye; D64.9 Anemia, unspecified; L23.9 Allergic contact dermatitis, unspecified cause; Z88.2 Allergy status to sulfonamides; Z88.1 Allergy status to other antibiotic agents; Z88.0 Allergy status to penicillin; Z79.899 Other long term (current) drug therapy
CPT/HCPCS: 00813; 88305; 96375; 96413; 96415; J2250; J2704; J3490; J7120

== ENCOUNTER 2023-07-05 10:13 | Emergency (ER) | payer MEDICARE, MEDICAID ==
[2023-07-05 10:28] VITALS: BP 156/97; PULSE 92
[2023-07-05 10:33] LABS: APPEARANCE,URINE CLEAR (CLEAR); BILIRUBIN,URINE NEGATIVE (NEGATIVE); COLOR,URINE YELLOW (YELLOW); GLUCOSE,URINE NEGATIVE (NEGATIVE); KETONES,URINE NEGATIVE (NEGATIVE); LEUKOCYTE ESTERASE,URINE NEGATIVE (NEGATIVE); NITRITE,URINE NEGATIVE (NEGATIVE); OCCULT BLOOD,URINE NEGATIVE (NEGATIVE); PROTEIN,URINE NEGATIVE (NEGATIVE); UROBILINOGEN,URINE 0.2 E.U./dL (0.2-1.0)
[2023-07-05 10:35] LABS: BACTERIA,URINE RARE /HPF (NONE TO FEW); EPITHELIAL CELLS,URINE RARE /LPF; MUCUS,URINE FEW /LPF (NEGATIVE); RBC,URINE 0-5 /HPF (0-5); WBC,URINE 0-5 /HPF (0-5)
[2023-07-05 10:56] LABS: BASOPHILS ABSOLUTE AUTO 0.03 10^3/uL (0.00-0.10); BASOPHILS PERCENT AUTO 0.3 % (0.0-1.0); EOSINOPHILS ABSOLUTE AUTO 0.19 10^3/uL (0.10-0.30); EOSINOPHILS PERCENT AUTO 2.2 % (1.0-3.0); HEMATOCRIT 41.3 % (40.0-52.0); IMMATURE GRAN ABSOLUTE AUTO 0.01 10^3/uL (0.00-0.50); IMMATURE GRAN PERCENT AUTO 0.1 % (0.0-5.0); LYMPHOCYTES ABSOLUTE AUTO 2.63 10^3/uL (1.00-4.00); LYMPHOCYTES PERCENT AUTO 29.9 % (20.0-40.0); MEAN CORPUSCULAR HEMOGLOBIN 29.2 pg (27.0-31.0); MEAN CORPUSCULAR HGB CONC 33.9 g/dL (32.0-36.0); MEAN PLATELET VOLUME 8.9 fL (7.4-10.4); MONOCYTES ABSOLUTE AUTO 0.95 10^3/uL (0.10-0.80); MONOCYTES PERCENT AUTO 10.8 % (2.0-8.0); NEUTROPHILS ABSOLUTE AUTO 4.99 10^3/uL (2.50-7.00); NEUTROPHILS PERCENT AUTO 56.7 % (50.0-70.0); PLATELET COUNT,PLT 241 10^3/uL (150-400); RED CELL DISTRIBUTION WIDTH 14.1 % (11.5-14.5)
[2023-07-05 11:25] LABS: ALBUMIN 3.48 g/dL (3.40-5.00); ANION GAP 12.9 mmol/L (5-15); BILIRUBIN TOTAL 0.4 mg/dL (0.2-1.0); CALCIUM 8.8 mg/dL (8.7-10.3); CARBON DIOXIDE,CO2 28.7 mmol/L (21.0-32.0); CREATININE 0.93 mg/dL (0.51-1.17); EST CRCL DRUG DOSING (CG) 93.33 mL/min; POTASSIUM,K 3.6 mmol/L (3.5-5.1); PROTEIN TOTAL,TP 8.2 g/dL (6.4-8.2)
[2023-07-05] MEDS: Phenazopyridine 100 MG Tab PO PRN (12:04)
== END 2023-07-05 12:06 | disposition home or self-care (01) ==
LOC: KA.ED 10:13
DX: R30.0 Dysuria (principal); I10 Essential (primary) hypertension; J44.9 Chronic obstructive pulmonary disease, unspecified; F17.210 Nicotine dependence, cigarettes, uncomplicated; Z88.2 Allergy status to sulfonamides; Z88.0 Allergy status to penicillin; Z88.8 Allergy status to other drugs, medicaments and biological substances; Z88.1 Allergy status to other antibiotic agents; Z79.899 Other long term (current) drug therapy; Z86.16 Personal history of COVID-19
CPT/HCPCS: 36415; 80053; 81001; 85025; 99283; 99284; A9270-GY